=== PATIENT | male | born 1960 | race Caucasian/White ===

== ENCOUNTER 2016-12-30 11:00 | Inpatient (IN) | payer OTHER ==
[2016-12-30 11:11] VITALS: BMI 25.7
--- NOTE | 2016-12-30 11:12 | PDOC ---
History of Present Illness - General Chief Complaint: Lightheaded Stated Complaint: LIGHTHEADED Time Seen by Provider: 12/30/16 11:11 History Source: Patient Exam Limitations: No Limitations - History of Present Illness Initial Comments: 12/30/16 16:46 56 YO MALE, Hx of STAGE 4 Metastatic Lung Cancer, Receiving Targeted Immunetherapy at [place]. LATIA ENNIS, . Has been feeling poorly for the past five days, exhausted, dyspnea on exertion, skin rashes and today on presentation he has some scleral icterus as well as jaundice. Patient saw his account manager relief on last week and was told that this is not a cardiology issue. He continues to feel worse. He has had dramatic results with this targeted immunetherapy and has had massive decreases in his total tumor burden. Timing/Duration: getting worse, changing over time, other (past five days) Modifying Factors: improves with: other (noting makes it worse or better..... activity exacerbates his symptoms) Associated Symptoms: denies: denies symptoms Past History - Past Medical History Allergies/Adverse Reactions: Allergies Allergy/AdvReac Type Severity Reaction Status Date / Time No Known Allergies Allergy Verified 12/30/16 11:04 Home Medications: Ambulatory Orders [id number] 450 mg PO BID 12/30/16 Oxycodone HCl 5 mg PO HS 12/30/16 Cancer: Yes (LUNG CA) Cardiac Disorders: Yes HTN: Yes - Immunization History Immunization Up to Date: Yes - Psycho/Social/Smoking Cessation Hx Anxiety: No Suicidal Ideation: No Smoking History: Current some day smoker Have you smoked in the past 12 months: Yes Number of Cigarettes Smoked Daily: 20 Information on smoking cessation initiated: Yes 'Breaking Loose' booklet given: 12/30/16 Hx Alcohol Use: (nightly) Review of Systems - Review of Systems Able to Perform ROS?: Yes Is the patient limited Gabonese proficient: No Constitutional: Yes: See HPI HEENTM: No: Symptoms Reported Respiratory: Yes: See HPI Cardiac (ROS): Yes: See HPI ABD/GI: No: Symptoms Reported, Tarry Stools Musculoskeletal: No: Symptoms Reported Integumentary: No: Symptoms Reported Neurological: No: Symptoms reported Psychiatric: No: Anxiety, Depression Endocrine: No: Symptoms Reported Hematologic/Lymphatic: No: Symptoms Reported All Other Systems: Reviewed and Negative *Physical Exam - Vital Signs Last Vital Signs Temp Pulse Resp BP Pulse Ox 97.9 F 101 H 20 101/68 100 12/30/16 11:00 12/30/16 11:00 12/30/16 11:00 12/30/16 11:00 12/30/16 11:00 - Physical Exam Comments: 12/30/16 16:52 56 yo male with NAD, presents with jaundice and scleral icterus. Non toxic apearance. General Appearance: Yes: Nourished, Appropriately Dressed HEENT: positive: EOMI, DANIELLE, Scleral Icterus (R), Scleral Icterus (L) Neck: positive: Trachea midline, Supple. negative: Tender Respiratory/Chest: positive: Lungs Clear, Normal Breath Sounds. negative: Chest Tender, Respiratory Distress Cardiovascular: positive: Regular Rhythm, Regular Rate. negative: JVD, Murmur Gastrointestinal/Abdominal: positive: Normal Bowel Sounds, Flat, Soft. negative : Tender, Organomegaly Rectal Exam: positive: deferred, other (patient denies any black tarry coffee ground red or bright red stools adamantly) Lymphatic: negative: Adenopathy, Tenderness Extremity: positive: Normal Capillary Refill, Normal Inspection, Other ( Marbeling of the skin that resembeles mottling, however it blanches.). negative : Calf Tenderness ED Treatment Course - LABORATORY CBC & Chemistry Diagram: 12/30/16 14:55 12/30/16 12:55 Medical Decision Making - Medical Decision Making 12/30/16 16:56 Hgb of 7.2 [was 11.4 just a few weeks ago] Bilirubin Total was 0.3 just a few weeks ago, now 1.9 Normal Liver Functions Normal white count and platelets Hemolytic Anemia..... from targeted immunetherapy? Will need transfusion Spoke with betsey kellogg [facility]. Stop study drug. Transfuse as inpatient here at [facility] Follow up with them on Friday next week. 12/30/16 18:[address] Mckinnon.... Will admit..... full admit... 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
[2016-12-30] MEDS ORDERED: SODIUM CHLORIDE 1,000 ML IV STA (11:50)
[2016-12-30 12:57] LABS: URINE APPEARANCE Clear; URINE BILIRUBIN Negative (NEGATIVE); URINE BLOOD Negative (NEGATIVE); URINE COLOR YELLOW; URINE GLUCOSE (UA) Negative (NEGATIVE); URINE KETONE Negative (NEGATIVE); URINE LEUK ESTERASE Negative (NEGATIVE); URINE NITRITE Negative (NEGATIVE); URINE PROTEIN Negative (NEGATIVE); URINE UROBILINOGEN 0.2 (0.2-1.0)
[2016-12-30 13:18] LABS: INR 1.14 (0.82-1.09); PROTHROMBIN TIME (PATIENT) 12.7 SEC (10.2-13.0)
[2016-12-30 13:26] LABS: CPK 95 IU/L (39-308)
[2016-12-30 13:27] LABS: ALBUMIN 2.9 g/dl (3.5-5.0); ALK PHOS 48 U/L (32-92); BILIRUBIN,TOTAL 1.9 mg/dl (0.2-1.0); CO2 24 mmol/L (22-28); CREATININE 1.1 mg/dl (0.6-1.3); GLUCOSE,RANDOM 105 mg/dl (74-106); MAGNESIUM 1.4 mg/dL (1.8-2.4); PHOSPHOROUS 3.2 mg/dl (2.5-4.6); SGOT/AST 20 U/L (10-42); SGPT/ALT 18 U/L (10-40); TOT PROT 6.7 g/dl (6.4-8.3)
[2016-12-30 13:36] LABS: ANION GAP 9 (8-16)
[2016-12-30 13:37] LABS: TROPONIN I (DFP) < 0.03 ng/ml (0.03-0.50)
[2016-12-30 16:16] LABS: MEAN CELL VOLUME 123.3 fl (80-96); MEAN PLT VOLUME 8.4 fl (7.5-11.1); PLATELET COUNT 427 K/MM3 (134-434)
[2016-12-30 16:26] LABS: MCH 82.6 pg (25.7-33.7); MCHC 66.9 g/dl (32.0-35.9)
[2016-12-30 18:26] LABS: ANISOCYTOSIS 1+
[2016-12-30 19:13] LABS: BILIRUBIN,DIRECT 0.3 mg/dl (0.0-0.2)
[2016-12-30 20:39] LABS: ABSOLUTE NEUTROPHILS 5.7 K/mm3
[2016-12-30] MEDS ORDERED: MAGNESIUM SULF 50% (8.12 MEQ/2 ML-1 GM VIAL) IVPB ONE (20:57)
--- NOTE | 2016-12-30 22:57 | HP ---
CHIEF COMPLAINT: fatigue, skin rashes PCP: Nilo. RESTAURANT SHIFT SUPERVISOR LOLI, HISTORY OF PRESENT ILLNESS: This is a 56 year old male with a past medical history significant for Stage 4 lung CA who presented to the ED with fatigue and skin rash. Pt was seen by his buyer assistant last week, who informed him that there was no active cardiac issues. Pt reports the rash has been intermittent for several months. The rash is treated with antibiotics and then he goes out into the sun and it returns and he goes back on antibiotics and the cycle continues. Pt noted the fatigue and dyspnea on exertion has been progressively worsening over the past 5 days. ED staff noted icteric sclera and jaundice ER course was notable for: (1) T Bili 1.9, Direct 0.3 (2) Hgb 7.3, RBC 0.88 Recent Travel: pt denies PAST MEDICAL HISTORY: Stage 4 Lung CA HTN was previously on valsartan but was taken off as his bp has been low HLD previously on statin PAST SURGICAL HISTORY: R THR Social History: Smoking: previous ppd, quit 4-5 months ago, occasionally sneaks a cigarette still Alcohol: 4oz vodka nightly Drugs: pt denies Family History: mother age 87, lung CA father age 72, Brain CA, DM brother alive and well no children Allergies No Known Allergies Allergy (Verified 12/30/16 11:04) HOME MEDICATIONS: 3 Medication Instructions Recorded [id number] 450 mg PO BID 12/30/16 Oxycodone HCl 5 mg PO HS 12/30/16 REVIEW OF SYSTEMS CONSTITUTIONAL: present: malaise Absent: fever, chills, diaphoresis, generalized weakness, loss of appetite, weight change HEENT: Absent: rhinorrhea, nasal congestion, throat pain, throat swelling, difficulty swallowing, mouth swelling, ear pain, eye pain, visual changes CARDIOVASCULAR: Absent: chest pain, syncope, palpitations, irregular heart rate, lightheadedness , peripheral edema RESPIRATORY: Present: dyspnea with exertion Absent: cough, shortness of breath, orthopnea, wheezing, stridor, hemoptysis GASTROINTESTINAL: Absent: abdominal pain, abdominal distension, nausea, vomiting, diarrhea, constipation, melena, hematochezia GENITOURINARY: Absent: dysuria, frequency, urgency, hesitancy, hematuria, flank pain, genital pain MUSCULOSKELETAL: Absent: myalgia, arthralgia, joint swelling, back pain, neck pain SKIN: Absent: rash, itching, pallor HEMATOLOGIC/IMMUNOLOGIC: Absent: easy bleeding, easy bruising, lymphadenopathy, frequent infections ENDOCRINE: Absent: unexplained weight gain, unexplained weight loss, heat intolerance, cold intolerance NEUROLOGIC: Absent: headache, focal weakness or paresthesias, dizziness, unsteady gait, seizure, mental status changes, bladder or bowel incontinence PSYCHIATRIC: Absent: anxiety, depression, suicidal or homicidal ideation, hallucinations. PHYSICAL EXAMINATION Vital Signs - 24 hr 3 12/30/16 12/30/16 12/30/16 12/30/16 12/30/16 11:00 13:43 19:15 19:33 20:26 Temperature 97.9 F 97.8 F 98.4 F 98.4 F Pulse Rate 101 H 98 H 98 H Pulse Rate [ 69 Left Apical] Respiratory 20 18 18 18 Rate Blood Pressure 101/68 115/65 115/65 Blood Pressure 101/70 100/60 [Right Arm] O2 Sat by Pulse 100 98 Oximetry (%) GENERAL: Awake, alert, and fully oriented, in no acute distress. HEAD: Normal with no signs of trauma. EYES: Pupils equal, round and reactive to light, extraocular movements intact, sclera icteric, conjunctiva clear. No lid lag. EARS, NOSE, THROAT: Ears normal, nares patent, oropharynx clear without exudates. Moist mucous membranes. NECK: Normal range of motion, supple without lymphadenopathy, JVD, or masses. LUNGS: Breath sounds equal, clear to auscultation bilaterally. No wheezes, and no crackles. No accessory muscle use. HEART: Regular rate and rhythm, normal S1 and S2 without murmur, rub or gallop. ABDOMEN: Soft, nontender, not distended, normoactive bowel sounds, no guarding, no rebound, no masses. No hepatomegaly or splenomegaly. MUSCULOSKELETAL: Normal range of motion at all joints. No bony deformities or tenderness. No CVA tenderness. UPPER EXTREMITIES: 2+ pulses, warm, well-perfused. No cyanosis. No clubbing. No peripheral edema. LOWER EXTREMITIES: 2+ pulses, warm, well-perfused. No calf tenderness. No peripheral edema. NEUROLOGICAL: Cranial nerves II-XII intact. Normal speech. Normal gait. PSYCHIATRIC: Cooperative. Good eye contact. Appropriate mood and affect. SKIN: Warm, dry, normal turgor, no rashes or lesions noted, normal capillary refill. slight jaundice tint to skin, maculopapular rash to bilat arms with some excoriations. Laboratory Results - last 24 hr 3 12/30/16 12/30/16 12/30/16 12:55 12:55 13:35 WBC Cancelled Corrected WBC (auto) Cancelled RBC Cancelled Hgb Cancelled Hct Cancelled MCV Cancelled MCH Cancelled MCHC Cancelled RDW Cancelled Plt Count Cancelled MPV Cancelled Add Manual Diff Cancelled Neutrophils % Cancelled Lymphocytes % Cancelled Monocytes % Cancelled Eosinophils % Cancelled Basophils % Cancelled Band Neutrophils Total Absolute Neuts Differential Comment Cancelled Smudge Cells Cancelled Platelet Estimate Cancelled Platelet Comment Cancelled Normal RBC Morphology Cancelled RBC Morphology Cancelled Anisocytosis Macrocytosis INR 1.14 Sodium 134 L Potassium 3.6 Chloride 101 Carbon Dioxide 24 Anion Gap 9 BUN 15 Creatinine 1.1 Creat Clearance w eGFR > 60 Random Glucose 105 Calcium 9.0 Phosphorus 3.2 Magnesium 1.4 L Total Bilirubin 1.9 H Direct Bilirubin AST 20 ALT 18 Alkaline Phosphatase 48 LD Total Creatine Kinase 95 Troponin I < 0.03 L C-Reactive Protein Total Protein 6.7 Albumin 2.9 L Serum Folate Urine Color Urine Appearance Urine pH Ur Specific Hopkins Urine Protein Urine Glucose (UA) Urine Ketones Urine Blood Urine Nitrite Urine Bilirubin Urine Urobilinogen Ur Leukocyte Esterase Blood Type Antibody Screen Crossmatch 3 12/30/16 12/30/16 12/30/16 14:55 17:00 17:00 18:28 WBC 10.0 Corrected WBC (auto) RBC 0.88 L Hgb 7.3 L Hct 20.6 L MCV 123.3 H MCH 82.6 H MCHC 66.9 H RDW 17.0 H Plt Count 427 MPV 8.4 Add Manual Diff Neutrophils % 77.0 Lymphocytes % 18.0 Monocytes % 3.0 L Eosinophils % 1.0 Basophils % Band Neutrophils 1.0 Total Absolute Neuts 5.70 Differential Comment Few red cell aggluti Smudge Cells Platelet Estimate Platelet Comment Few large plts Normal RBC Morphology RBC Morphology Anisocytosis 1+ Macrocytosis 2+ INR Sodium Potassium Chloride Carbon Dioxide Anion Gap BUN Creatinine Creat Clearance w eGFR Random Glucose Calcium Phosphorus Magnesium Total Bilirubin Direct Bilirubin 0.3 H AST ALT Alkaline Phosphatase 47 LD Total 274 H Creatine Kinase Troponin I C-Reactive Protein 2.2 H Total Protein Albumin Serum Folate 7 Urine Color Urine Appearance Urine pH Ur Specific Hopkins Urine Protein Urine Glucose (UA) Urine Ketones Urine Blood Urine Nitrite Urine Bilirubin Urine Urobilinogen Ur Leukocyte Esterase Blood Type B POSITIVE Antibody Screen Negative Crossmatch See Detail 3 Urine Color Yellow 12/30/16 12:15 Urine Appearance Clear 12/30/16 12:15 Urine pH 6.0 (4.5-8) 12/30/16 12:15 Ur Specific Hopkins <= 1.005 (1.005-1.025) 12/30/16 12:15 Urine Protein Negative (NEGATIVE) 12/30/16 12:15 Urine Glucose (UA) Negative (NEGATIVE) 12/30/16 12:15 Urine Ketones Negative (NEGATIVE) 12/30/16 12:15 Urine Blood Negative (NEGATIVE) 12/30/16 12:15 Urine Nitrite Negative (NEGATIVE) 12/30/16 12:15 Urine Bilirubin Negative (NEGATIVE) 12/30/16 12:15 Ur Leukocyte Esterase Negative (NEGATIVE) 12/30/16 12:15 Radiology Results CHEST PA LAT Chest: Dyspnea. Lightheadedness Imaging reveals clear lungs, normal mediastinum and sharp angles. There are degenerative changes with wedging. The soft tissues are intact. Impression: No acute pathology. No prior studies for comparison. Reported By: Miles Sy MD 12/30/16 1249 ECG NSR, rate 98, QTC 462 ASSESSMENT/PLAN: 56yM with PMH Stage 4 lung CA, HTN, HLD presented to the ED with malaise, fatigue, FRIAS, He is being admitted for anemia. Anemia-likely hemolytic - ? drug reaction. - ED dw RESTAURANT SHIFT SUPERVISOR @ [place] who recommended dc study drug ([id number]) transfuse and f/u @ [place] this week - 1u PRBC to be given, repeat CBC after, give 2nd unit if Hgb less than 9 hypomagnesia - repleted, repeat in am Rash - chronic, no s/s acute infection, defer tx to [place] HTN - Monitor BP, start valsartan if elevated DVT PPX - defer heparin due to anemia FEN - defer IVF, Pt drinking fluids - BMP, Mg in am - regular diet as tolerated Dispo: Pt currently requires inpatient management of his emergent condition Visit type - Emergency Visit Emergency Visit: Yes ED Registration Date: 12/30/16 Care time: The patient presented to the Emergency Department on the above date and was hospitalized for further evaluation of their emergent condition. - New Patient This patient is new to me today: Yes Date on this admission: 12/30/16 - Critical Care Critical Care patient: No
[2016-12-30 23:11] LABS: C-REACTIVE PROTEIN 2.2 MG/DL (0.00-0.3)
[2016-12-31] MEDS ORDERED: oxyCODONE HCL 5 MG TABLET PO PRN (02:50)
[2016-12-31 04:45] LABS: BASOPHIL 2.1 % (0-2.0); EOSINOPHIL 6.4 % (0-4.5); MCH 35.1 pg (25.7-33.7); MCHC 34.3 g/dl (32.0-35.9); MEAN CELL VOLUME 102.3 fl (80-96); MEAN PLT VOLUME 8.3 fl (7.5-11.1); NEUTROPHILS 61.3 % (42.8-82.8); PLATELET COUNT 329 K/MM3 (134-434); RDW 15.7 % (11.9-15.9); WHITE BLOOD COUNT 7.9 K/mm3 (4.0-10.0)
[2016-12-31 05:33] LABS: ANION GAP 6 (8-16); CALCIUM 8.2 mg/dL (8.5-10.1); CO2 26 mmol/L (21-32); CREATININE 0.8 mg/dL (0.7-1.3); GLUCOSE,RANDOM 99 mg/dL (74-106)
[2016-12-31 05:36] LABS: ALBUMIN 2.2 g/dl (3.4-5.0); BILIRUBIN,DIRECT 0.4 mg/dL (0.0-0.2); BILIRUBIN,TOTAL 1.4 mg/dL (0.2-1.0); TOT PROT 5.5 g/dl (6.4-8.2)
--- NOTE | 2016-12-31 11:22 | PN ---
Physical Exam: SUBJECTIVE: Patient seen and examined, reports feeling better, denies any dyspnea upon exertion, dizziness or chest pain. OBJECTIVE: patient is a 56 year old male with a past medical history significant for Stage 4 lung CA, receiving Targeted Immunetherapy at [facility]. Patient was admitted from the emergency department for symptomatic hemolytic anemia., Vital Signs Period Temp Pulse Resp BP Sys/Foster Pulse Ox Last 24 Hr 98.4 F-98.9 F 85-98 17-18 97-115/55-65 94-94 GENERAL: The patient is awake, alert, and fully oriented, in no acute distress. HEAD: Normal with no signs of trauma. EYES: PERRL, extraocular movements intact, sclera icteric, conjunctiva clear. No ptosis. ENT: Ears normal, nares patent, oropharynx clear without exudates, moist mucous membranes. NECK: Trachea midline, full range of motion, supple. LUNGS: Breath sounds equal, clear to auscultation bilaterally, no wheezes, no crackles, no accessory muscle use. HEART: Regular rate and rhythm, S1, S2 without murmur, rub or gallop. ABDOMEN: Soft, nontender, nondistended, normoactive bowel sounds, no guarding, no rebound, no hepatosplenomegaly, no masses. EXTREMITIES: 2+ pulses, warm, well-perfused, no edema. NEUROLOGICAL: Cranial nerves II through XII grossly intact. Normal speech, gait not observed. PSYCH: Normal mood, normal affect. SKIN: Warm, dry, normal turgor, mottling noted to proximal no rashes or lesions noted Laboratory Results - last 24 hr 12/31/16 12/31/16 12/31/16 04:00 04:00 04:00 WBC 7.9 RBC 1.83 L Hgb 6.4 L* Hct 18.7 L MCV 102.3 H MCH 35.1 H MCHC 34.3 RDW 15.7 Plt Count 329 MPV 8.3 Neutrophils % 61.3 Lymphocytes % 18.2 Monocytes % 12.0 H Eosinophils % 6.4 H Basophils % 2.1 H Sodium 139 Potassium 3.6 Chloride 107 Carbon Dioxide 26 Anion Gap 6 L BUN 12 Creatinine 0.8 Random Glucose 99 Calcium 8.2 L Magnesium 2.0 D Total Bilirubin 1.4 H Direct Bilirubin 0.4 H AST 17 ALT 16 Alkaline Phosphatase 58 Total Protein 5.5 L Albumin 2.2 L Active Medications Generic Name Dose Route Start Last Admin Trade Name Freq PRN Reason Stop Dose Admin Oxycodone HCl 5 mg 12/31/16 02:50 12/31/16 03:05 Roxicodone - PO 5 mg BID PRN Administration MODERATE PAIN ASSESSMENT/PLAN:
[2016-12-31 11:46] VITALS: BP 108/63; PULSE 91; TEMP 98.9
--- NOTE | 2016-12-31 13:35 | DS ---
Physical Exam: SUBJECTIVE: Patient seen and examined, reports feeling better, ambulatory at bedside, denies any dyspnea upon exertion, denies any chest pain or dizzness. OBJECTIVE:This is a 56 year old male with a past medical history significant for Stage 4 lung CA who presented to the ED with fatigue and skin rash. Pt was seen by his hair and makeup designer last week, who informed him that there was no active cardiac issues. Pt reports the rash has been intermittent for several months. The rash is treated with antibiotics and then he goes out into the sun and it returns and he goes back on antibiotics and the cycle continues. Pt noted the fatigue and dyspnea on exertion has been progressively worsening over the past 5 days. ED staff noted icteric sclera and jaundice ER course was notable for: (1) T Bili 1.9, Direct 0.3 (2) Hgb 7.3, RBC 0.88 Vital Signs Period Temp Pulse Resp BP Sys/Foster Pulse Ox Last 24 Hr 98.4 F-98.9 F 85-98 17-18 97-115/55-65 94-98 PHYSICAL EXAM GENERAL: The patient is awake, alert, and fully oriented, in no acute distress. HEAD: Normal with no signs of trauma. EYES: PERRL, extraocular movements intact, sclera icteric, conjunctiva clear. ENT: Ears normal, nares patent, oropharynx clear without exudates, moist mucous membranes. NECK: Trachea midline, full range of motion, supple. LUNGS: Breath sounds equal, clear to auscultation bilaterally, no wheezes, no crackles, no accessory muscle use. HEART: Regular rate and rhythm, S1, S2 without murmur, rub or gallop. ABDOMEN: Soft, nontender, nondistended, normoactive bowel sounds, no guarding, no rebound, no hepatosplenomegaly, no masses. EXTREMITIES: 2+ pulses, warm, well-perfused, no edema. mottling noted to proximal lower extremities NEUROLOGICAL: Cranial nerves II through XII grossly intact. Normal speech, gait not observed. PSYCH: Normal mood, normal affect. SKIN: Warm, dry,slight jaundice normal turgor, no rashes or lesions noted. LABS Laboratory Results - last 24 hr CBC WBC 12.3 K/mm3 (4.0-10.8) H 12/31/16 11:52 Corrected WBC (auto) Cancelled 12/30/16 13:35 RBC 1.23 M/mm3 (4.00-5.60) L D 12/31/16 11:52 Hgb 8.1 GM/dl (11.7-16.9) L D 12/31/16 11:52 Hct 15.3 % (35.4-49) L D 12/31/16 11:52 MCV 123.8 fl (80-96) H 12/31/16 11:52 MCH 65.3 pg (25.7-33.7) H 12/31/16 11:52 MCHC 52.8 g/dl (32.0-35.9) H 12/31/16 11:52 RDW 15.1 % (11.9-15.9) D 12/31/16 11:52 Plt Count 286 K/MM3 (134-434) D 12/31/16 11:52 MPV 8.7 fl (7.5-11.1) 12/31/16 11:52 Add Manual Diff Cancelled 12/30/16 13:35 Neutrophils % 59.6 % (42.8-82.8) D 12/31/16 11:52 Lymphocytes % 19.9 % (8-40) 12/31/16 11:52 Monocytes % 8.7 % (3.8-10.2) D 12/31/16 11:52 Eosinophils % 5.7 % (0-4.5) H D 12/31/16 11:52 Basophils % 6.1 % (0-2.0) H* 12/31/16 11:52 Band Neutrophils 1.0 % (0-10) 12/30/16 14:55 Total Absolute Neuts 5.70 K/mm3 12/30/16 18:28 Differential Comment Few red cell aggluti 12/30/16 14:55 Smudge Cells Cancelled 12/30/16 13:35 Platelet Estimate Cancelled 12/30/16 13:35 Platelet Comment Few large plts 12/30/16 14:55 Platelet Comment Cancelled 12/30/16 13:35 Normal RBC Morphology Cancelled 12/30/16 13:35 RBC Morphology Cancelled 12/30/16 13:35 Anisocytosis 1+ 12/30/16 14:55 Macrocytosis 2+ 12/30/16 14:55 CMP Sodium 139 mmol/L (136-145) 12/31/16 04:00 Potassium 3.6 mmol/L (3.5-5.1) 12/31/16 04:00 Chloride 107 mmol/L (98-107) 12/31/16 04:00 Carbon Dioxide 26 mmol/L (21-32) 12/31/16 04:00 Anion Gap 6 (8-16) L 12/31/16 04:00 BUN 12 mg/dL (7-18) 12/31/16 04:00 Creatinine 0.8 mg/dL (0.7-1.3) 12/31/16 04:00 Creat Clearance w eGFR > 60 (>60) 12/30/16 12:55 Random Glucose 99 mg/dL (74-106) 12/31/16 04:00 Calcium 8.2 mg/dL (8.5-10.1) L 12/31/16 04:00 Phosphorus 3.2 mg/dl (2.5-4.6) 12/30/16 12:55 Magnesium 2.0 mg/dL (1.8-2.4) D 12/31/16 04:00 Total Bilirubin 1.4 mg/dL (0.2-1.0) H 12/31/16 04:00 Direct Bilirubin 0.4 mg/dL (0.0-0.2) H 12/31/16 04:00 AST 17 U/L (15-37) 12/31/16 04:00 ALT 16 U/L (12-78) 12/31/16 04:00 Alkaline Phosphatase 58 U/L (45-117) 12/31/16 04:00 LD Total 274 U/L (91-180) H 12/30/16 17:00 Creatine Kinase 95 IU/L (39-308) 12/30/16 12:55 Troponin I < 0.03 ng/ml (0.03-0.50) L 12/30/16 12:55 C-Reactive Protein 2.2 MG/DL (0.00-0.3) H 12/30/16 18:28 Total Protein 5.5 g/dl (6.4-8.2) L 12/31/16 04:00 Albumin 2.2 g/dl (3.4-5.0) L 12/31/16 04:00 Serum Folate 7 ng/ml (3.1-17.5) 12/30/16 18:28 Radiology Results CHEST PA LAT Chest: Dyspnea. Lightheadedness Imaging reveals clear lungs, normal mediastinum and sharp angles. There are degenerative changes with wedging. The soft tissues are intact. Impression: No acute pathology. No prior studies for comparison. Reported By: Miles Sy MD 12/30/16 1249 ECG NSR, rate 98, QTC 462 HOSPITAL COURSE: patient was admitted from the emergency department for symptomatic hemolytic anemia. He was transfused 2 units of PRBC, repeat hgb 8.1. etiology of hemolytic anemia is undetermined. Patient is currently undergoing experimental target immunotherapy at [facility] (Dr Forman). hemolytic anemia may be reactive secondary to immunotherapy. Case was discussed with Dr Forman, patient's private oncologist and [id number] was held, in addition, prednisone 50mg was started. Patient does have a history of hypertension. His blood pressure was noted to be low and valsartan was held. B/P remained at goal. PLAN * continue prednisone 50mg for 7 days * f/u at [facility], with Dr Forman on Friday, 01/03, appoinment is scheduled. * return precautions reviewed Date of Admission:12/30/16 Date of Discharge: 12/31/16 Minutes to complete discharge: 45 Discharge Summary Reason For Visit: HEMOLYTIC ANEMIA Current Active Problems Hemolytic anemia (Acute) Condition: Improved - Instructions Diet, Activity, Other Instructions: please keep follow up appointment that you have scheduled with your oncologist, Dr Forman for January 03 continue taking prednisone as prescribed, please take prednisone with food continue taking pepcid daily if any new or persistent symptoms develop please return to the emergency department. Disposition: HOME - Home Medications Comprehensive Discharge Medication List: Ambulatory Orders [id number] 450 mg PO BID 12/30/16 Oxycodone HCl 5 mg PO HS 12/30/16 This patient is new to me today: Yes Date on this admission: 12/31/16 Emergency Visit: Yes ED Registration Date: 12/30/16 Care time: The patient presented to the Emergency Department on the above date and was hospitalized for further evaluation of their emergent condition. Critical Care patient: No - Discharge Referral Referred to [facility] Med [facility].: No
[2016-12-31] MEDS ORDERED: FAMOTIDINE 20 MG TABLET PO SCH (14:00)
--- NOTE | 2016-12-31 14:02 | EKG ---
Test Reason : Blood Pressure : / mmHG Vent. Rate : 098 BPM Atrial Rate : 098 BPM P-R Int : 144 ms QRS Dur : 084 ms QT Int : 362 ms P-R-T Axes : 017 056 035 degrees QTc Int : 462 ms NORMAL SINUS RHYTHM NORMAL ECG NO PREVIOUS ECGS AVAILABLE REPEAT EKG IF CLINICALLY INDICATED Confirmed by EDDIE JOHNSON MD ([id number]) on 12/31/2016 2:01:38 PM Referred By: DYLON Confirmed By:EDDIE JOHNSON MD
[2016-12-31] MEDS ORDERED: predniSONE 20 MG TABLET (UD) PO SCH (14:15)
--- NOTE | 2016-12-31 18:31 | HOSP ---
Physical Examination Labs: Hospitalist Encounter Assessment: Received call from lab reporting (+) direct calvin. Patient discharged and will f/u with oncologist on Friday01/03/17.
[2017-01-03 00:06] LABS: HIV-1 RNA by PCR <20 copies/mL (.)
== END 2016-12-31 14:31 | disposition home or self-care (01) | DRG 810 ==
LOC: FER 11:00 → FM/S 19:33
PROVIDERS: ADMIT Internal Medicine; ATTEND Nurse Practitioner Family
PROC: 30233N1 Transfusion of Nonautologous Red Blood Cells into Peripheral Vein, Percutaneous Approach (ICD-10-PCS; principal; 2016-12-30)
DX: D59.9 Acquired hemolytic anemia, unspecified (principal); E83.42 Hypomagnesemia; I10 Essential (primary) hypertension; R21 Rash and other nonspecific skin eruption; Z72.0 Tobacco use; Z85.118 Personal history of other malignant neoplasm of bronchus and lung
CPT/HCPCS: 36415; 36430; 71020-TC; 80048; 80053; 80076; 81003; 82248; 82746; 83010; 83615; 83735; 84075; 84100; 84484; 85025; 85610; 86140; 86850; 86880; 86900; 86901; 86922; 87040; 87536; 93005; 99284-25; P9038; P9058

== ENCOUNTER 2017-01-02 10:30 | Observation (INO) | payer OTHER ==
--- NOTE | 2017-01-02 10:33 | PDOC ---
History of Present Illness - General Chief Complaint: Shortness of Breath Stated Complaint: sob, anemia Time Seen by Provider: 01/02/17 10:32 - History of Present Illness Initial Comments: 56 year old male with PMH of stave IV lung cancer (currently on experimental chemo, last doese this AM) and recent diagnosis of Autoimmune hemolytic anemia ( calvin +) presenting with lightheadedness, and SOB on exertion over the past week. He was at [facility] on Friday for similar symptoms and eventually had an infusion on Friday of two units PRBCs for a HgB of 6.4 (dropped from 7.2 on presentation on Friday). His symptoms improved and he continued his experimental chemotherapy. He is presenting for exactly the same symptoms. Denies chest pain, nausea, vomiting, diarrhea, constipation, or other issues. He was seen by his public address system operator last week and he did not find any cardiac cause of his SOB. 01/02/17 12:17 Past History - Past Medical History Allergies/Adverse Reactions: Allergies Allergy/AdvReac Type Severity Reaction Status Date / Time No Known Allergies Allergy Verified 12/30/16 11:04 Home Medications: Ambulatory Orders Oxycodone HCl 5 mg PO HS 12/30/16 Prednisone [Prednisone 50 MG TABLETS] 75 mg PO DAILY 01/02/17 Cancer: Yes (LUNG CA) Cardiac Disorders: Yes HTN: Yes - Immunization History Immunization Up to Date: Yes - Psycho/Social/Smoking Cessation Hx Anxiety: No Suicidal Ideation: No Smoking History: Current some day smoker Have you smoked in the past 12 months: Yes Number of Cigarettes Smoked Daily: 20 'Breaking Loose' booklet given: 12/30/16 Hx Alcohol Use: No (nightly) Drug/Substance Use Hx: No Substance Use Type: None Hx Substance Use Treatment: No Review of Systems - Review of Systems Constitutional: No: Chills, Diaphoresis, Fever, Loss of Appetite HEENTM: No: Blurred Vision, Recent change in vision Respiratory: Yes: Shortness of Breath, SOB with Exertion. No: Cough Cardiac (ROS): No: Chest Pain, Edema, Irregular Heart Rate, Lightheadedness ABD/GI: No: Abdominal Distended, Constipated, Diarrhea, Nausea, Poor Appetite, Rectal Bleeding, Vomiting, Tarry Stools : No: Burning, Dysuria, Discharge, Flank Pain, Hematuria Musculoskeletal: No: Back Pain, Joint Pain Integumentary: Yes: Rash Neurological: No: Headache, Numbness, Paresthesia *Physical Exam - Physical Exam General Appearance: Yes: Nourished, Appropriately Dressed. No: Apparent Distress HEENT: positive: EOMI, DANIELLE, Normal Voice, TMs Normal, Pharynx Normal, Scleral Icterus (R), Scleral Icterus (L) Neck: positive: Trachea midline, Normal Thyroid, Supple. negative: Tender, Rigid Respiratory/Chest: positive: Lungs Clear, Normal Breath Sounds. negative: Chest Tender, Respiratory Distress Cardiovascular: positive: Regular Rhythm, Regular Rate, S1, S2. negative: Edema , Murmur Gastrointestinal/Abdominal: positive: Normal Bowel Sounds, Flat, Soft. negative : Tender, Organomegaly Rectal Exam: positive: other (refused rectal and hemeoccult) Musculoskeletal: positive: Normal Inspection. negative: CVA Tenderness (R), CVA Tenderness (L), Decreased Range of Motion Extremity: positive: Normal Range of Motion. negative: Swelling Integumentary: positive: Dry, Warm, Rash. negative: Normal Color, Swelling Neurologic: positive: Fully Oriented, Alert, Normal Mood/Affect, Normal Response , Motor Strength 10/04 ED Treatment Course - LABORATORY CBC & Chemistry Diagram: 01/02/17 10:49 01/02/17 10:49 Medical Decision Making - Medical Decision Making 56 year old male with Pulmonary cancer (stave IV last chemo treatment this AM) presenting with one week of SOB, lightheadedness, and lacy rash in the setting of new diagnosis of autoimmune hemolytic anemia requiring two units of PRBCs two days prior. This is most likely due to his intravascular autoimmune hemolysis likely secondary to either his malignancy or a new drug reaction to his chemotherapy. He is a [facility] patient and has follow up this week for further workup for this AIHA and further cancer treatment. This is less likely hemorrhagic anemia given his lack of bleeding from any orifice or previous GI bleed or hemoptysis. The patient will be admitted for symptomatic anemia at 7.6. The BUTADIENE CONVERTOR OPERATOR at [facility] was spoken to by our learning support aide and made aware of the admission, He will be admitted under Dr. Ratliff for obs with tele. He was transfered upstairs borderline tacky at mid 90s but other VSS and feeling generally well. Type and cross [facility] pending for blood products. Goal of repletion 8-8.5 HgB. 01/02/17 14:12 *DC/Admit/Observation/Transfer Diagnosis at time of Disposition: Hemolytic anemia, Dyspnea on exertion, Malignancy not in remission - Discharge Dispostion Admit: Yes - Attestations Physician Attestion: 01/02/17 12:22 I, Dr. Leonel Potter, attest that this document has been prepared under my direction and personally reviewed by me in its entirety. I further attest, that it accurately reflects all work, treatment, procedures and medical decision -making performed by me.
--- NOTE | 2017-01-02 10:40 | PDOC ---
Attending Attestation - Resident Resident Name: Leonel Potter - HPI HPI: 01/02/17 11:27 56 y/o male with stage 4 lung cancer, present to ED with increase SOB with exertion. Seen 2 days ago for blood transfusion due to an autoimmune hemolytic anemia and on experimental cancer drugs at [facility]. Denies chest pain and symptoms at rest. No N/V/D/C. Saw Rack Pusher yesterday and told H/H low 6.2. Came here for another transfusion. Denies rectal bleeding. - Physicial Exam PE: 01/02/17 11:31 Heent: jaundice, icteric eyes Skin: lacy purpulish rash Heart RRR without murmur Lungs: CTA b/l without wheezing Abd: soft nontender +BS Ext: no clubbing, cyanosis, edema, no calf tenderness b/l Rectal: deferred by pt, risk and benefits discussed with pt Neuro: CN 2-12 grossly intact, no focal deficits noted 01/02/17 11:52 EKG NSR @ 98 No STEMI seen - Medical Decision Making 01/02/17 12:[address] Gaudencio Birmingham will admit for observation for blood transfusion Family in agreement with plan Agree with Resident plan and examination Assessment: Anemia Plan: transfusion 2 units PRBC 01/02/17 12:18
[2017-01-02 11:14] LABS: ALBUMIN 3.3 g/dl (3.5-5.0); ALK PHOS 49 U/L (32-92); ANION GAP 11 (8-16); BILIRUBIN,TOTAL 3.8 mg/dl (0.2-1.0); CALCIUM 9.2 mg/dl (8.4-10.2); CO2 23 mmol/L (22-28); CREATININE 1.3 mg/dl (0.6-1.3); GLUCOSE,RANDOM 110 mg/dl (74-106); SGOT/AST 30 U/L (10-42); SGPT/ALT 19 U/L (10-40)
[2017-01-02 12:42] LABS: WHITE BLOOD COUNT 18.4 K/mm3 (4.0-10.8)
[2017-01-02 12:43] LABS: BASOPHIL 0.6 % (0-2.0); EOSINOPHIL 0.2 % (0-4.5); MEAN PLT VOLUME 7.7 fl (7.5-11.1); NEUTROPHILS 71.3 % (42.8-82.8); PLATELET COUNT 452 K/MM3 (134-434); RDW 19.4 % (11.9-15.9)
--- NOTE | 2017-01-02 13:08 | HP ---
CHIEF COMPLAINT: anemia PCP: Dr Forman HISTORY OF PRESENT ILLNESS: patient is a 56 y/o male with a pmh of stage IV lung Ca, hypertension, hyperlipidemia. patient is being managed at [facility] (Dr Forman ) and is receiving targeted immunotherapy. He was recently discharged from this hospital on January 01 after received 2 units of PRBC for symptomatic hemolytic anemia (calvin test +). He was started on prednisione 50mg upon discharge. Patient had a repeat hgb on 01/01/17 with resulted as 6.4 and was referred to the hospital for 2 units of PRBC transfusion. ER course was notable for: (1) hgb 7.6 (2) b/p 138/82 (3) Recent Travel: none PAST MEDICAL HISTORY: stage IV lung CA, hypertension (no meds) hyperlipidemia PAST SURGICAL HISTORY:right THR Social History: resides with Smoking: previous ppd quit 4-5months ago, smokes occaisionally Alcohol: vodka daily Drugs: none Family History: mother 87, lung CA father age 72, brain ca, DM brother alive and well Allergies No Known Allergies Allergy (Verified 12/30/16 11:04) HOME MEDICATIONS: Home Medications Medication Instructions Recorded Oxycodone HCl 5 mg PO HS 12/30/16 Prednisone [Prednisone 50 MG 75 mg PO DAILY 01/02/17 TABLETS] REVIEW OF SYSTEMS CONSTITUTIONAL: present: generalized weakness, malaise Absent: fever, chills, diaphoresis,, loss of appetite, weight change HEENT: Absent: rhinorrhea, nasal congestion, throat pain, throat swelling, difficulty swallowing, mouth swelling, ear pain, eye pain, visual changes CARDIOVASCULAR: Absent: chest pain, syncope, palpitations, irregular heart rate, lightheadedness , peripheral edema RESPIRATORY: Absent: cough, shortness of breath, dyspnea with exertion, orthopnea, wheezing, stridor, hemoptysis GASTROINTESTINAL: Absent: abdominal pain, abdominal distension, nausea, vomiting, diarrhea, constipation, melena, hematochezia GENITOURINARY: Absent: dysuria, frequency, urgency, hesitancy, hematuria, flank pain, genital pain MUSCULOSKELETAL: Absent: myalgia, arthralgia, joint swelling, back pain, neck pain SKIN: Absent: rash, itching, pallor HEMATOLOGIC/IMMUNOLOGIC: Absent: easy bleeding, easy bruising, lymphadenopathy, frequent infections ENDOCRINE: Absent: unexplained weight gain, unexplained weight loss, heat intolerance, cold intolerance NEUROLOGIC: Absent: headache, focal weakness or paresthesias, dizziness, unsteady gait, seizure, mental status changes, bladder or bowel incontinence PSYCHIATRIC: Absent: anxiety, depression, suicidal or homicidal ideation, hallucinations. PHYSICAL EXAMINATION Vital Signs - 24 hr 01/02/17 01/02/17 01/02/17 10:31 10:51 12:09 Temperature 98.6 F Pulse Rate 114 H 98 H Pulse Rate [ 99 H Apical] Respiratory 24 18 Rate Blood Pressure 138/82 Blood Pressure 116/74 [Left Arm] O2 Sat by Pulse 96 98 99 Oximetry (%) GENERAL: Awake, alert, and fully oriented, in no acute distress. HEAD: Normal with no signs of trauma. EYES: Pupils equal, round and reactive to light, extraocular movements intact, sclera anicteric, conjunctiva clear. No lid lag. EARS, NOSE, THROAT: Ears normal, nares patent, oropharynx clear without exudates. Moist mucous membranes. NECK: Normal range of motion, supple without lymphadenopathy, JVD, or masses. LUNGS: Breath sounds equal, clear to auscultation bilaterally. No wheezes, and no crackles. No accessory muscle use. HEART: Regular rate and rhythm, normal S1 and S2 without murmur, rub or gallop. ABDOMEN: Soft, nontender, not distended, normoactive bowel sounds, no guarding, no rebound, no masses. No hepatomegaly or splenomegaly. MUSCULOSKELETAL: Normal range of motion at all joints. No bony deformities or tenderness. No CVA tenderness. UPPER EXTREMITIES: 2+ pulses, warm, well-perfused. No cyanosis. No clubbing. No peripheral edema. LOWER EXTREMITIES: 2+ pulses, warm, well-perfused. No calf tenderness. No peripheral edema. NEUROLOGICAL: Cranial nerves II-XII intact. Normal speech. Normal gait. PSYCHIATRIC: Cooperative. Good eye contact. Appropriate mood and affect. SKIN: Warm, dry, normal turgor, no rashes or lesions noted, normal capillary refill. Laboratory Results - last 24 hr 01/02/17 01/02/17 01/02/17 10:49 10:49 10:49 WBC 18.4 H D RBC 0.94 L D Hgb 7.6 L Hct 11.6 L MCV 123.4 H MCH 81.2 H MCHC 65.8 H RDW 19.4 H D Plt Count 452 H D MPV 7.7 D Neutrophils % 71.3 Lymphocytes % 18.0 Monocytes % 9.9 Eosinophils % 0.2 D Basophils % 0.6 Sodium 133 L Potassium 4.0 Chloride 99 Carbon Dioxide 23 Anion Gap 11 BUN 22 H D Creatinine 1.3 Creat Clearance w eGFR 56.90 Random Glucose 110 H Calcium 9.2 Total Bilirubin 3.8 H D AST 30 D ALT 19 Alkaline Phosphatase 49 Total Protein 7.0 Albumin 3.3 L Blood Type Cancelled Antibody Screen Cancelled Crossmatch See Detail Spec Expiration Date Cancelled ASSESSMENT/PLAN: 1) heme/onc hemolytic anemia - continue prednsione home dose 75mg, pt received his dose today prior to arrival - transfuse 2 unit of prbc, repeat cbc after 2nd unit of prbc - pt has a scheduled appt at [facility], with Dr Dasia morillo at 945am 2) card hypertension - strict monitoring f/e/n - low sodium diet ppx - oob - scd dispo: requires obsv admission Visit type - Emergency Visit Emergency Visit: Yes ED Registration Date: 01/02/17 Care time: The patient presented to the Emergency Department on the above date and was hospitalized for further evaluation of their emergent condition. - New Patient This patient is new to me today: Yes Date on this admission: 01/02/17 - Critical Care Critical Care patient: No
[2017-01-02 16:53] VITALS: BMI 57.5
--- NOTE | 2017-01-02 18:54 | DS ---
Physical Exam: SUBJECTIVE: Patient seen and examined, patient reports feeling better, denies any chest pain or shortness of breath. OBJECTIVE: patient is a 56 y/o male with a pmh of stage IV lung Ca, hypertension , hyperlipidemia. patient is being managed at [facility] (Dr Forman) and is receiving targeted immunotherapy. He was recently discharged from this hospital on January 01 after received 2 units of PRBC for symptomatic hemolytic anemia (calvin test +). He was started on prednisione 50mg upon discharge. Patient had a repeat hgb on 01/01/17 with resulted as 6.4 and was referred to the hospital for 2 units of PRBC transfusion. ER course was notable for: (1) hgb 7.6 (2) b/p 138/82 PHYSICAL EXAM GENERAL: Awake, alert, and fully oriented, in no acute distress. HEAD: Normal with no signs of trauma. EYES: Pupils equal, round and reactive to light, extraocular movements intact, sclera anicteric, conjunctiva clear. No lid lag. EARS, NOSE, THROAT: Ears normal, nares patent, oropharynx clear without exudates. Moist mucous membranes. NECK: Normal range of motion, supple without lymphadenopathy, JVD, or masses. LUNGS: Breath sounds equal, clear to auscultation bilaterally. No wheezes, and no crackles. No accessory muscle use. HEART: Regular rate and rhythm, normal S1 and S2 without murmur, rub or gallop. ABDOMEN: Soft, nontender, not distended, normoactive bowel sounds, no guarding, no rebound, no masses. No hepatomegaly or splenomegaly. MUSCULOSKELETAL: Normal range of motion at all joints. No bony deformities or tenderness. No CVA tenderness. UPPER EXTREMITIES: 2+ pulses, warm, well-perfused. No cyanosis. No clubbing. No peripheral edema. LOWER EXTREMITIES: 2+ pulses, warm, well-perfused. No calf tenderness. No peripheral edema. NEUROLOGICAL: Cranial nerves II-XII intact. Normal speech. Normal gait. PSYCHIATRIC: Cooperative. Good eye contact. Appropriate mood and affect. SKIN: Warm, dry, normal turgor, no rashes or lesions noted, normal capillary refill. LABS CBC WBC 18.4 K/mm3 (4.0-10.8) H D 01/02/17 10:49 RBC [place] Caster 01/02/17 10:49 Hgb 7.6 GM/dl (11.7-16.9) L 01/02/17 10:49 Hct [place] Caster 01/02/17 10:49 MCV P[place] Caster 01/02/17 10:49 MCH P[place] Caster 01/02/17 10:49 MCHC [place] Caster 01/02/17 10:49 RDW 19.4 % (11.9-15.9) H D 01/02/17 10:49 Plt Count 452 K/MM3 (134-434) H 01/02/17 10:49 MPV 7.7 fl (7.5-11.1) 01/02/17 10:49 Neutrophils % 71.3 % (42.8-82.8) 01/02/17 10:49 Lymphocytes % 18.0 % (8-40) 01/02/17 10:49 Monocytes % 9.9 % (3.8-10.2) D 01/02/17 10:49 Eosinophils % 0.2 % (0-4.5) 01/02/17 10:49 Basophils % 0.6 % (0-2.0) 01/02/17 10:49 CMP Sodium 133 mmol/L (136-145) L 01/02/17 10:49 Potassium 4.0 mmol/L (3.5-5.1) 01/02/17 10:49 Chloride 99 mmol/L (98-107) 01/02/17 10:49 Carbon Dioxide 23 mmol/L (22-28) 01/02/17 10:49 Anion Gap 11 (8-16) 01/02/17 10:49 BUN 22 mg/dl (7-18) H D 01/02/17 10:49 Creatinine 1.3 mg/dl (0.6-1.3) 01/02/17 10:49 Creat Clearance w eGFR 56.90 (>60) 01/02/17 10:49 Random Glucose 110 mg/dl (74-106) H 01/02/17 10:49 Calcium 9.2 mg/dl (8.4-10.2) 01/02/17 10:49 Total Bilirubin 3.8 mg/dl (0.2-1.0) H D 01/02/17 10:49 AST 30 U/L (10-42) D 01/02/17 10:49 ALT 19 U/L (10-40) 01/02/17 10:49 Alkaline Phosphatase 49 U/L (32-92) 01/02/17 10:49 Total Protein 7.0 g/dl (6.4-8.3) 01/02/17 10:49 Albumin 3.3 g/dl (3.5-5.0) L 01/02/17 10:49 HOSPITAL COURSE: * hemolytic anemia, prednsione home dose 75mg, continued, patient took his home dose prior to arrival to the hospital, transfused 2 unit of prbc, pt has a scheduled appt at [facility], with Dr Dasia morillo at 945am * pmh of hypertension, no home medication. strict monitoring PLAN -keep follow [place] [facility] [place] return precautions reviewed. Date of Admission:01/02/17 Date of Discharge: 01/02/17 Minutes to complete discharge: 45 Discharge Summary Reason For Visit: HEMOLYTIC ANEMIA Current Active Problems Dyspnea on exertion (Acute) Hemolytic anemia (Acute) Malignancy not in remission (Acute) Condition: Improved - Instructions Diet, Activity, Other Instructions: resume regular diet please keep appointment with your oncologist Dr Forman at 845am tomorrow (01/03) at [facility] if any new or persistent symptoms develop please return to the emergency department Disposition: HOME - Home Medications Comprehensive Discharge Medication List: Ambulatory Orders RX: Oxycodone HCl 5 mg PO HS 12/30/16 RX: Prednisone [Prednisone 50 MG TABLETS] 75 mg PO DAILY 01/02/17 This patient is new to me today: No Emergency Visit: Yes ED Registration Date: 01/02/17 Care time: The patient presented to the Emergency Department on the above date and was hospitalized for further evaluation of their emergent condition. Critical Care patient: No - Discharge Referral Referred to [facility] No
[2017-01-02 22:17] VITALS: BP 127/76; PULSE 89; TEMP 98.8
--- NOTE | 2017-01-03 10:10 | EKG ---
Test Reason : Blood Pressure : / mmHG Vent. Rate : 098 BPM Atrial Rate : 098 BPM P-R Int : 144 ms QRS Dur : 086 ms QT Int : 348 ms P-R-T Axes : 056 056 031 degrees QTc Int : 444 ms NORMAL SINUS RHYTHM NORMAL ECG WHEN COMPARED WITH ECG OF 30-DEC-2016 11:09, NO SIGNIFICANT CHANGE WAS FOUND Confirmed by GENA MARTELL MD ([id number]) on 01/03/2017 10:10:12 AM Referred By: MARCELLA YEE Confirmed By:GENA MARTELL MD
== END 2017-01-02 21:00 | disposition home or self-care (01) ==
LOC: FER 10:30 → FM/S 12:58 → FASU 14:27
PROVIDERS: ADMIT Internal Medicine; ATTEND Nurse Practitioner Family
PROC: 30233N1 Transfusion of Nonautologous Red Blood Cells into Peripheral Vein, Percutaneous Approach (ICD-10-PCS; principal; 2017-01-02)
DX: D59.1 Other autoimmune hemolytic anemias (principal); R06.00 Dyspnea, unspecified; C34.90 Malignant neoplasm of unspecified part of unspecified bronchus or lung; I10 Essential (primary) hypertension; F17.210 Nicotine dependence, cigarettes, uncomplicated; E78.5 Hyperlipidemia, unspecified; Z92.21 Personal history of antineoplastic chemotherapy
CPT/HCPCS: 36415; 80053; 85025; 86850; 86900; 86901; 93005; 99284-25; G0378